=== PATIENT | male | born 1995 | race African-American/Black ===

== ENCOUNTER 2019-11-25 12:50 | Emergency (ER) | payer MEDICARE, MEDICAID ==
[2019-11-25 14:00] VITALS: BP 132/70
== END 2019-11-25 14:22 | disposition home or self-care (01) ==
LOC: ER 12:50
DX: M79.671 Pain in right foot (principal); I10 Essential (primary) hypertension; X50.1XXA Overexertion from prolonged static or awkward postures, initial encounter; Y93.01 Activity, walking, marching and hiking; Y92.89 Other specified places as the place of occurrence of the external cause; Y99.8 Other external cause status
CPT/HCPCS: 73630